=== PATIENT | male | born 1995 | race Caucasian/White ===

== ENCOUNTER 2016-07-07 15:43 | Emergency (ER) | payer BC ==
[2016-07-07 16:33] VITALS: RESP 16; TEMP 99
--- NOTE | 2016-07-07 17:37 | EDPHY ---
H & P Stated Complaint: diarrhea/fever/returned from [place] 1 wk ago/mid back pain HPI/ROS: CHIEF COMPLAINT: Back pain, diarrhea HISTORY OF PRESENT ILLNESS: This patient is a healthy 20 year old male complaining of diarrhea onset two days ago and back pain worsening over the last several weeks. He states he has been travelling a lot to [place], and was most recently in [facility] one week ago, volunteering [place]. He states he has been "on the toilet nonstop" for the last couple days. He states his bowel movements have been fluid-like and difficult to control. He denies associated blood. He endorses abdominal discomfort and cramping. His reports his last episode of diarrhea was several hours ago. He denies cough, vomiting, or other associated symptoms. He describes his back pain as located in his mid to upper back, and "deep". He reports it has been constant and dull, but sharpening over the last week. Denies incontinence, numbness, paresthesias, or weakness. He denies taking any pain medication to control his symptoms. 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 REVIEW OF SYSTEMS: A ten point review of systems was performed and is negative with the exception of the items mentioned in the HPI. - Personal History Current Tetanus/Diphtheria Vaccine: Yes - Medical/Surgical History Hx Asthma: No Hx Chronic Respiratory Disease: No Hx Diabetes: No Hx Cardiac Disease: No Hx Renal Disease: No Hx Cirrhosis: No Hx Alcoholism: No Hx HIV/AIDS: No Hx Splenectomy or Spleen Trauma: No Other PMH: denies - Social History Smoking Status: Never smoked Additional Social History: Nonsmoker, no IV drug use. PCP Dr. Cadena. - Physical Exam Exam: General Appearance: Alert. Vital signs reviewed. * Eyes: Pupils equal and round, no conjunctival injection, no discharge. Anicteric. ENT, Mouth: Mucous membranes are moist, no oropharyngeal erythema or edema. Neck: No lymphadenopathy, supple. Respiratory: Lungs are clear to auscultation; no wheezes, rales, or rhonchi. Cardiovascular: Regular rate and rhythm; no murmur, rub, or gallop. Gastrointestinal: Abdomen is soft and nontender, no masses or organomegaly, bowel sounds normal. Skin: Warm and dry, no rashes on exposed skin, normal color. Back: Nontender to palpation over the thoracolumbar spine. No CVAT. Extremities: Abrasion to right knee. No lower extremity edema, no calf tenderness or swelling. Neurological: Alert and oriented. Moving all four extremities easily and equally. Psychiatric: Normal affect. Constitutional: Initial Vital Signs Temperature (C) 37.2 C 07/07/16 16:30 Heart Rate 96 07/07/16 16:30 Respiratory Rate 16 07/07/16 16:30 Blood Pressure 114/68 07/07/16 16:30 O2 Sat (%) 96 07/07/16 16:30 O2 Delivery Mode Room Air Allergies/Adverse Reactions: No Known Allergies Allergy (Unverified 07/07/16 16:30) Home Medications: Medication Instructions Recorded NK [No Known Home Meds] 07/07/16 Medical Decision Making - Diagnostics Imaging: I viewed and interpreted images myself ED Course/Re-evaluation: This patient is a 20 year old male presenting with diarrhea and back pain. Plan for labs, IV fluids, chest x-ray. Labs show elevated bilirubin, but otherwise unremarkable. Reassessed patient. He states his back pain is bumming him out. He declines pain medication at this time. Plan to discharge home in good condition. Return precautions discussed. The patient is comfortable with this plan. Stool studies returned positive for Campylobacter. This was resulted after the patient left the emergency department. I do not feel that he needs antibiotic treatment. He has been ill with diarrhea for only 2 days, he is not immunocompromised, has not had fever, has not had bloody diarrhea and is not otherwise at risk for severe complications. Differential Diagnosis: Back pain including but not limited to muscular pain, herniated disc, spine fracture, pancreatitis, ureterolithiasis, cholecystitis and other intra- abdominal causes and urinary tract infection. I considered a differential diagnosis of diarrhea that includes but is not limited to bacterial, viral, and parasitic diarrhea. - Data Points Laboratory Results: Laboratory Results 07/07/16 18:10 07/07/16 18:10 Microbiology Results: MICROBIOLOGY 07/07/16 18:33 Stool Gastrointestinal Tract Panel (PCR) - Final Campylobacter Species Medications Given: Discontinued Medications Sodium Chloride (Ns) 1,000 mls @ 0 mls/hr IV ONCE ONE PRN Reason: Wide Open Stop: 07/07/16 18:17 Last Admin: 07/07/16 18:34 Dose: 1,000 mls Departure - Departure Disposition: Home, Routine, Self-Care Clinical Impression: Diarrhea Qualifiers: Diarrhea type: infectious Qualified Code(s): A09 - Infectious gastroenteritis and colitis, unspecified Back pain Qualifiers: Back pain location: thoracic back pain Chronicity: acute Back pain laterality: bilateral Qualified Code(s): M54.6 - Pain in thoracic spine Condition: Good Instructions: Traveler's Diarrhea (ED), Acute Diarrhea (ED), Back Pain (ED) Additional Instructions: 1. Follow up with Dr. Cadena this week for symptoms unresolved. 2. Stay well hydrated. 3. Return to the ED for worsening diarrhea, fever, chills, or other worsening of condition. 4. Return to the ED for uncontrollable back pain, trouble controlling your bladder or bowels, or other worsening of condition. Referrals: Brandon Cadena [Primary Care Provider] - As per Instructions Report Scribed for: Linda Luo Report Scribed by: Macie Luther Date of Report: 07/07/16 Time of Report: 17:50 Physician Review and Approval Statement: 07/07/16 17:37 Portions of this note were transcribed by the medical photographer. I, Dr. Linda Luo, personally performed the history, physical exam, and medical decision- making; and confirmed the accuracy of the information in the transcribed note.
[2016-07-07] MEDS ORDERED: NS 1,000 ML IV ONE (18:16)
[2016-07-07 18:20] LABS: % IMMATURE GRANULYOCYTES 0.3 % (0.0-1.1); ABSOLUTE IMMATURE GRANULOCYTES 0.03 10^3/uL (0.00-0.10); ADD DIFF? NO; ADD MORPH? NO; ADD SCAN? NO; ATYPICAL LYMPHOCYTE FLAG 0 (0-99); FRAGMENT RBC FLAG 0 (0-99); HEMOGLOBIN 16.3 g/dL (13.7-17.5); LEFT SHIFT FLG 10 (0-99); LIPEMIA HEMOLYSIS FLAG 90 (0-99); MEAN CELL HEMOGLOBIN 31.1 pg (27.9-34.1); MEAN CELL HEMOGLOBIN CONCENTR. 36.2 g/dL (32.4-36.7); MEAN CELL VOLUME 85.9 fL (81.5-99.8); MEAN PLATELET VOLUME 10.7 fL (8.7-11.7); PLATELET CLUMPS FLAG 0 (0-99); PLATELET COUNT 160 10^3/uL (150-400); RED BLOOD CELL COUNT 5.24 10^6/uL (4.40-6.38); RED CELL DISTRIBUTION WIDTH 11.6 % (11.5-15.2)
[2016-07-07 18:34] LABS: ANION GAP 12 mEq/L (8-16); CARBON DIOXIDE 22 mEq/l (22-31); CHLORIDE 101 mEq/L (97-110); CREATININE 0.8 mg/dL (0.7-1.3); GLOMERULAR FILTRATION RATE > 60; GLUCOSE 101 mg/dL (70-100); POTASSIUM 4.2 mEq/L (3.5-5.2); SODIUM 135 mEq/L (134-144)
[2016-07-07 19:26] LABS: ALBUMIN 4.2 g/dL (3.5-5.0); BILIRUBIN,TOTAL 2.3 mg/dL (0.1-1.4); BILIRUBIN-CONJUGATED 0.4 mg/dL (0.0-0.5); BILIRUBIN-UNCONJUGATED 1.9 mg/dL (0.0-1.1); TOTAL PROTEIN 7.2 g/dL (6.3-8.2)
[2016-07-07 19:35] VITALS: BP 126/68; PULSE 77; O2SAT 95
== END 2016-07-07 19:53 | disposition home or self-care (01) ==
DX: A09 Infectious gastroenteritis and colitis, unspecified (principal); M54.6 Pain in thoracic spine